=== PATIENT | male | born 1990 | race Hispanic/Latino ===

== ENCOUNTER 2020-06-28 09:31 | Emergency (ER) | payer OTHER, SELFPAY ==
--- NOTE | ~2020-06-28 | XR_ITS ---
EXAMINATION: XR foot RT min 3V DATE: 06/28/2020 10:26 INDICATION: Right foot injury and pain. TECHNIQUE: 4 views of right foot were obtained. COMPARISON: None. FINDINGS: There is a comminuted joint depression fracture of calcaneus with decreased Boehler's angle . There is also involvement of the articular surface of the calcaneocuboid joint. Joint spaces are no rmal. IMPRESSION: 1. Comminuted joint depression fracture of calcaneus. Reviewed, dictated and finalized at location B.
--- NOTE | ~2020-06-28 | XR_ITS ---
EXAMINATION: XR ankle LT min 3V DATE: 06/28/2020 10:26 INDICATION: Left ankle injury and pain. TECHNIQUE: 4 views of left ankle were obtained. COMPARISON: None. FINDINGS: There is an avulsion fracture of distal tip of the fibula with 1 mm distraction. There is m ild osteoarthritis of talonavicular joint. Ankle soft tissue swelling is noted. IMPRESSION: 1. Avulsion fracture of distal tip of the fibula. Reviewed, dictated and finalized at location B.
--- NOTE | ~2020-06-28 | XR_ITS ---
EXAMINATION: XR foot LT min 3V DATE: 06/28/2020 10:26 INDICATION: Left foot injury and pain. TECHNIQUE: 4 views of left foot were obtained. COMPARISON: None. FINDINGS: There is mild hallux valgus. No fracture. There is mild osteoarthritis of talonavicular maryanne nt and first metatarsophalangeal joint. IMPRESSION: 1. Mild polyarticular osteoarthritis. Reviewed, dictated and finalized at location B.
[2020-06-28 09:38] VITALS: BP 157/103; PULSE 81; RESP 20; TEMP 36.6; O2SAT 99
[2020-06-28] MEDS: ONDANSETRON INJ 4 MG/2 ML VIAL IV PUSH (10:17)
[2020-06-28] MEDS: MORPHINE SULFATE 4 MG/ML INJ IV PUSH (10:17)
--- NOTE | 2020-06-28 10:22 | ED.FALL ---
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 Reports he was at work. 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 He was throwing extra supplies off of the roof onto the ground. Reports he saw the home agency owner come out of the garage and thought the supplies would hit the homeowner which caused him to lose his balance and he fell off the roof. Reports he fell about 10 feet. Reports he landed on his feet. Since he has had bilateral feet pain. Denies hitting his head, loss of consciousness, neck pain, back pain, numbness, or weakness. Related Data Allergies Allergy/AdvReac Type Severity Reaction Status Date / Time No Known Allergies Allergy Verified 06/28/20 10:16 Review of Systems Review of Systems: Narrative: CONSTITUTIONAL: Denies fever CARDIOVASCULAR: Denies chest pain MUSCULOSKELETAL: Reports joint pain and myalgia. Denies back pain NEUROLOGIC: Denies numbness, or weakness. All systems reviewed & are unremarkable except as noted in HPI and below PMFSH Past Medical History Medical History (Updated 06/28/20 @ 11:41 by Kelly Camacho PA-C) No active medical problems Social History Social History (Updated 06/28/20 @ 10:24 by Kelly Camacho PA-C) Smoking status: Never smoker Substance use: never Exam Narrative: Exam Narrative: GENERAL: Well-appearing, well-nourished, and in mild acute distress due to pain. HEAD: Normocephalic, atraumatic. EYES: EOMI. NECK: Supple. No adenopathy or masses. No midline cervical spine tenderness CHEST: Clear to auscultation. No respiratory distress. No wheezes rales or rhonchi HEART: Regular rate and rhythm. No murmur heard. Normal peripheral pulses. BACK: No midline thoracic or lumbar spine tenderness EXTREMITIES: Normal range of motion, except decreased range of motion in the ankles bilaterally due to pain. Left lateral malleolar line with moderate overlying edema. Normal DP pulses. Normal sensation SKIN: Warm, dry, no rash. NEURO: No focal deficits. Alert and oriented x3. PSYCH: Normal mood and affect Course Vital Signs Vital signs: Vital Signs Temperature 97.8 F 06/28/20 09:38 Pulse Rate 81 06/28/20 09:38 Respiratory Rate 20 06/28/20 09:38 Blood Pressure 157/103 H 06/28/20 09:38 Pulse Oximetry 99 06/28/20 09:38 Temperature 97.8 F 06/28/20 09:38 Pulse Rate 81 06/28/20 09:38 Respiratory Rate 20 06/28/20 09:38 Blood Pressure 157/103 H 06/28/20 09:38 Pulse Oximetry 99 06/28/20 09:38 MDM - Fall MDM Narrative Medical decision making narrative: Patient presents the emergency department after a fall from height today. Landed on his feet. Did not hit his head or lose consciousness. No midline spinal tenderness. Patient complaining of bilateral foot pain. Right foot x-ray shows a comminuted joint depression fracture of the calcaneus. Left ankle x-ray shows an avulsion fracture at the tip of the distal fibula. Spoke with Dr. Nath about patient and work-up. Patient will be placed in a splint for the calcaneal fracture. The avulsion fracture can be placed in an Kaleb wrap. Patient will need follow-up with trauma surgery in [place]. Reports he will help coordinate patient to get to the appropriate orthopedic doctor for follow-up. Patient placed in splint and Kaleb wrap and given postop shoe for the left foot as needed for comfort. Will be given crutches. Also given resources for a wheelchair if needed. Was instructed to rest, ice and elevate. Will be given pain medication as needed. Patient is stable and felt appropriate for further outpatient evaluation. He will follow-up with orthopedics outpatient. He was given wa
--- NOTE | 2020-06-28 10:55 | PC.NURSE ---
Kelly Camacho PA-C at bedside w/ pt discussing results and POC.
[2020-06-28 12:34] VITALS: BP 156/70; PULSE 86; RESP 16; TEMP 36.8; O2SAT 99
== END 2020-06-28 12:35 | disposition home or self-care (01) ==
PROVIDERS: Emergency Provider Emergency Medicine
DX: S92.011A Displaced fracture of body of right calcaneus, initial encounter for closed fracture (principal); S82.832A Other fracture of upper and lower end of left fibula, initial encounter for closed fracture; W13.2XXA Fall from, out of or through roof, initial encounter
CPT/HCPCS: 29515; 73610; 73630; 96374; 96375; 99284; A9270; J2270; J2405